=== PATIENT | male | born 1965 | race Caucasian/White ===

== ENCOUNTER 2018-08-11 09:39 | Emergency (ER) | payer OTHER ==
[2018-08-11] MEDS ORDERED: HYDROmorphone 2 MG/ML Syringe ONE (10:38)
[2018-08-11] MEDS ORDERED: HYDROmorphone 2 MG/ML Syringe IVPUSH ONE (10:38)
[2018-08-11] MEDS ORDERED: Lidocaine 2% 20 ML MDV SUBCUT ONE (10:45)
[2018-08-11] MEDS ORDERED: Ondansetron 4 MG/2 ML SDV IVPUSH ONE (10:45)
[2018-08-11] MEDS ORDERED: Ondansetron 4 MG/2 ML SDV ONE (10:51)
--- NOTE | 2018-08-11 10:55 | EDM.PDOC ---
ED HPI GENERAL MEDICAL PROBLEM - General Chief Complaint: Lower Extremity Injury/Pain Stated Complaint: RIGHT ANKLE INJURY Time Seen by Provider: 08/11/18 10:00 Source of Information: Reports: Patient History Limitations: Reports: No Limitations - History of Present Illness INITIAL COMMENTS - FREE TEXT/NARRATIVE: Pt is from [facility] here on fishing trip. He claims that he was in his fish house, tried to get out and slipped on ice and fell, not sure how he twisted his right ankle. But has deformed painful right ankle. EMS was called, and brought into emergency room in portable air cast. Pt does c/o pain in his ankle rates at 8/10. No tingling or numbness in his right foot, but cannot move the foot. Last meal was at 7 am today. Onset: Today Onset Date: 08/11/18 Onset Time: 08:30 Location: Reports: Lower Extremity, Right Quality: Reports: Ache Severity: Severe Improves with: Reports: None Worsens with: Reports: None Associated Symptoms: Reports: No Other Symptoms Right Ankle Pain Score (Numeric/FACES): 7 - Related Data Allergies Allergy/AdvReac Type Severity Reaction Status Date / Time No Known Allergies Allergy Verified 08/11/18 09:46 Home Meds: Home Meds Albuterol Sulfate [Proair Hfa] 1 - 2 puff IH Q4HR PRN 08/11/18 [History] Review of Systems - Review of Systems Review Of Systems: See Below Constitutional: Denies: Chills, Fever Eyes: Denies: Blindness Ears: Denies: Dizziness, Pain Nose: Denies: Congestion Mouth/Throat: Denies: Bleeding, Painful Swallowing Respiratory: Denies: Shortness of Breath, Cough, Sputum Cardiovascular: Denies: Chest Pain, Syncope GI/Abdominal: Denies: Abdominal Pain, Nausea, Vomiting Genitourinary: Denies: Dysuria, Hematuria Musculoskeletal: Reports: Foot Pain, Joint Pain, Joint Swelling. Denies: Neck Pain Skin: Denies: Bruising, Pruritis, Rash Neurological: Denies: Confusion, Dizziness, Headache, Numbness, Tingling ED EXAM, GENERAL - Physical Exam Exam: See Below Exam Limited By: No Limitations General Appearance: Alert, WD/WN, Moderate Distress Eye Exam: Bilateral Eye: EOMI, PERRL Ears: Normal External Exam, Normal Canal, Hearing Grossly Normal, Normal TMs Ear Exam: Bilateral Ear: Auricle Normal, Canal Normal, TM normal Nose: Normal Inspection, Normal Mucosa, No Blood Throat/Mouth: Normal Inspection, Normal Lips, Normal Teeth, Normal Gums, Normal Oropharynx, Normal Voice, No Airway Compromise Head: Atraumatic, Normocephalic Neck: Normal Inspection, Supple, Non-Tender, Full Range of Motion Respiratory/Chest: No Respiratory Distress, Lungs Clear, Normal Breath Sounds, No Accessory Muscle Use, Chest Non-Tender Cardiovascular: Normal Peripheral Pulses, Regular Rate, Rhythm, No Edema, No Gallop, No JVD, No Murmur, No Rub GI/Abdominal: Normal Bowel Sounds, Soft, Non-Tender, No Organomegaly, No Distention, No Abnormal Bruit, No Mass Extremities: Other (Right ankle and foot: the foot is laterally displaced andthere is prominenece of the medial malleolus, there is very minimal swelling over the medial aspect of the ankle , but no skin bruising noted. Also there is swelling over the lower lateral asepct of the leg, very tender to palpation. Pt does avoid any movement of the right foot seconday to pain. he does have good dorsalis pedis pulse and also good capillary refilly of the toes, I have difficulty finiding posterior tibial.) Neurological: Alert, Oriented, CN II-XII Intact, Normal Cognition Course - Vital Signs Text/Narrative:: Pt's Right ankle Xray does show fracture dislocation of the right ankle mortise. talus is rotated and dislocated posterolaterally, there is comminuted displaced fracture of the distal tibial shaft, with posterior medial malleolar fracture. Pt does have good dorsalis pulse and capillary refill. He did recieve dilaudid 2mg IV for pain. I did contact Dr. Montalvo, Orthopedist at [facility] and discuss patient with him. Films were sent for review. Dr. Montalvo's recommendation was to have the joint reduced to prevent tissue and skin necrosis and have him traasnferred down to [facility] for possible surgical fixation. I did discuss the recommendation with patient and his spouse who was on phone. Pt agree with the plan. I did try to locally infiltrate lidocaine 2% into the joint and reduce the joint. Pt did not tolerated. Hence patient was placed on conscious sedation. Had 2 IV lines started. Started normal saline at 150cc/hr. He did need fentanyl 50mcg and versed 4mg . Joint was reduced and repeat Xray does show talus back in motise, post reduction he does have good dorsalis pulse and capillary refill. Long leg splint has been applied. Post splint has good capillary refill. Pt is alert and awake now. He does rate his pain at 2-3/10. I did contact , the emergency room physician at [facility], and notified him of the transfer. He does agree to accept patient.Pt is transferred by [facility] ambulance. Further care per Dr. Montalvo. Last Recorded V/S: Last Vital Signs Temp 97.9 F 08/11/18 09:48 Pulse 90 08/11/18 09:48 Resp 18 08/11/18 09:48 BP 154/85 H 08/11/18 09:48 Pulse Ox 97 08/11/18 09:48 - Orders/Labs/Meds Orders: Active Orders 24 hr Category Date Time Status Ankle 2V Rt [CR] Stat Exams 08/11/18 11:24 Taken Meds: Medications Discontinued Medications Generic Name Dose Route Start Last Admin Trade Name Cece PRN Reason Stop Dose Admin Fentanyl 25 mcg 08/11/18 11:30 08/11/18 11:19 Sublimaze IVPUSH 08/11/18 11:31 25 mcg ONETIME ONE Administration Hydromorphone HCl Confirm 08/11/18 10:38 08/11/18 11:44 Dilaudid Administered 08/11/18 10:39 Not Given Dose 2 mg .ROUTE .STK-MED ONE Hydromorphone HCl 2 mg 08/11/18 10:38 08/11/18 10:35 Dilaudid IVPUSH 08/11/18 10:39 2 mg ONETIME ONE Administration Midazolam HCl 2 mg 08/11/18 11:30 08/11/18 11:16 Versed 1 Mg/Ml IVPUSH 08/11/18 11:31 2 mg ONETIME ONE Administration Ondansetron HCl Confirm 08/11/18 10:51 08/11/18 11:44 Zofran Administered 08/11/18 10:52 Not Given Dose 8 mg .ROUTE .STK-MED ONE Ondansetron HCl 8 mg 08/11/18 10:45 08/11/18 10:47 Zofran IVPUSH 08/11/18 10:46 8 mg ONETIME ONE Administration Departure - Departure Time of Disposition: 13:00 Disposition: DC/Tfer to Acute Hospital 02 Condition: Fair Clinical Impression: Closed fracture dislocation of ankle joint - Discharge Information *PRESCRIPTION DRUG MONITORING PROGRAM REVIEWED*: Not Applicable *COPY OF PRESCRIPTION DRUG MONITORING REPORT IN PATIENT RENA: Not Applicable Referrals: PCP,None [Primary Care Provider] - Forms: ED Department Discharge - Problem List & Annotations (1) Closed fracture dislocation of ankle joint SNOMED Code(s): 233828703 Code(s): S82.899A - OTH FRACTURE OF UNSP LOWER LEG, INIT FOR CLOS FX Status : Acute Current Visit: Yes - Problem List Review Problem List Initiated/Reviewed/Updated: Yes - My Orders Last 24 Hours: My Active Orders 08/11/18 11:24 Ankle 2V Rt [CR] Stat - Assessment/Plan Last 24 Hours: My Active Orders 08/11/18 11:24 Ankle 2V Rt [CR] Stat Assessment:: Comminuted closed fracture dislocation of right ankle joint. Plan: Pt's Right ankle Xray does show fracture dislocation of the right ankle mortise. talus is rotated and dislocated posterolaterally, there is comminuted displaced fracture of the distal tibial shaft, with posterior medial malleolar fracture. Pt does have good dorsalis pulse and capillary refill. He did recieve dilaudid 2mg IV for pain. I did contact Dr. Montalvo, Orthopedist at [facility] and discuss patient with him. Films were sent for review. Dr. Montalvo's recommendation was to have the joint reduced to prevent tissue and skin necrosis and have him traasnferred down to [facility] for possible surgical fixation. I did discuss the recommendation with patient and his spouse who was on phone. Pt agree with the plan. I did try to locally infiltrate lidocaine 2% into the joint and reduce the joint. Pt did not tolerated. Hence patient was placed on conscious sedation. Had 2 IV lines started. Started normal saline at 150cc/hr. He did need fentanyl 50mcg and versed 4mg . Joint was reduced and repeat Xray does show talus back in motise, post reduction he does have good dorsalis pulse and capillary refill. Long leg splint has been applied. Post splint has good capillary refill. Pt is alert and awake now. He does rate his pain at 2-3/10.Pt's last meal ws at 7 Am today, he has been kept NPO. I did contact , the emergency room physician at [facility], and notified him of the transfer. He does agree to accept patient.Pt is transferred by [facility] ambulance. Further care per Dr. Montalvo.
--- NOTE | 2018-08-11 11:02 | CR ---
DATE OF SERVICE: 08/11/18 CLINICAL DATA: fall-ankle deformity RIGHT ANKLE: There is a fracture dislocation of the ankle mortise joint. There is a comminuted displaced fracture through the distal fibular diaphysis. There is posterior displacement and posterior angulation of the distal fragments with respect to the proximal. The talus is dislocated posteriorly and laterally with respect to the distal tibia. The talus is also rotated with respect to the distal tibia. There is a displaced fracture of the posterior malleolus of the distal tibia. There is also a displaced fracture through the medial malleolus. No other acute abnormalities. Orthopedic consultation is recommended. [id number] [facility]
[2018-08-11] MEDS: Midazolam 1 MG/ML 2 ML SDV IVPUSH ONE ×2 (11:12→11:16)
[2018-08-11] MEDS: fentaNYL 250 MCG/5 ML SDV IVPUSH ONE ×2 (11:13→11:19)
[2018-08-11] MEDS ORDERED: Sodium Chloride 0.9% 1,000 ML IV SCH (11:14)
[2018-08-11 12:55] VITALS: BP 143/86
--- NOTE | 2018-08-13 10:23 | CR ---
DATE OF SERVICE: 08/11/18 CLINICAL DATA: post reduction RIGHT ANKLE: Comparison is made to a prior exam from earlier in the day. A single AP view was performed. The tibiotalar dislocation does appear to be reduced. Again noted are multiple fractures. AP and lateral views are necessary. [id number] [facility]
== END 2018-08-11 13:19 ==
LOC: LB.ED 09:39
DX: S82.51XA Displaced fracture of medial malleolus of right tibia, initial encounter for closed fracture (principal); S82.891A Other fracture of right lower leg, initial encounter for closed fracture; S82.831A Other fracture of upper and lower end of right fibula, initial encounter for closed fracture; W00.0XXA Fall on same level due to ice and snow, initial encounter; X50.1XXA Overexertion from prolonged static or awkward postures, initial encounter
CPT/HCPCS: 27788; 27840; 73600-RT; 96361; 96374; 96375; 99152; 99284-25; A0425; A0429; J1170; J2001; J2250; J2405; J3010; J7030